=== PATIENT | male | born 1955 | race Caucasian/White ===

== ENCOUNTER 2019-04-10 07:56 | Emergency (ER) | payer OTHER ==
[~2019-04-10] VITALS: Ht 177.8 cm; Wt 108.9 kg
[2019-04-10] MEDS ORDERED: NACL 0.9% 1,000 ML IV ONE (08:00)
[2019-04-10 08:02] VITALS: BP_SYST 180
[2019-04-10] MEDS ORDERED: DIPHENHYDRAMINE INJ 50 MG/ML VIAL IVP ONE (08:15)
[2019-04-10 08:40] LABS: BASOPHILS % (AUTO) 0.4 % (0.0-2.0); EOSINOPHILS # (AUTO) 0.2 K/uL (0.0-0.4); HEMATOCRIT 41.9 % (36-54); LYMPHOCYTES # (AUTO) 1.2 K/uL (1.0-5.5); LYMPHOCYTES % (AUTO) 13.9 % (20.5-51.5); MEAN CORPUSCULAR HEMOGLOBIN 29 pg (27-31); MEAN CORPUSCULAR HGB CONC 33 % (32-36); MEAN CORPUSCULAR VOLUME 88 fL (79.0-98.0); MONOCYTES # (AUTO) 0.6 K/uL (0.0-1.0); MONOCYTES % (AUTO) 6.7 % (1.7-9.3); NEUTROPHILS # (AUTO) 6.5 K/uL (1.8-7.7); PLATELET COUNT (AUTO) 253 K/uL (130-430); RED BLOOD CELL COUNT(AUTO) 4.75 MIL/uL (4.2-6.2); WHITE BLOOD COUNT (AUTO) 8.5 K/uL (4.8-10.8)
[2019-04-10 08:43] LABS: ANION GAP 8 (5-15); CALCIUM 9.5 mg/dL (8.4-11.0); CHLORIDE 101 mmol/L (98-107); CREATININE 0.78 mg/dL (0.55-1.30); GLUCOSE 123 mg/dL (70-99); POTASSIUM 3.5 mmol/L (3.5-5.1); SODIUM SERUM 133 mmol/L (136-145); UREA NITROGEN, BLOOD 21 mg/dL (8-21)
[2019-04-10 08:45] LABS: GFR AFRICAN AMERICAN 130 mL/min (>90)
[2019-04-10 08:46] LABS: PROTHROMBIN TIME 10.1 SECS (9.5-12.5)
[2019-04-10 08:48] LABS: ALANINE AMINOTRANSFERASE 59 U/L (12-78); ALBUMIN 3.5 g/dL (3.4-4.8); ALCOHOL, BLOOD < 3 mg/dL (<10); ASPARTATE AMINOTRANSFERASE 67 U/L (10-37); LIPASE 358 U/L (73-393); TOTAL BILIRUBIN 0.9 mg/dL (0.0-1.0)
[2019-04-10 08:53] LABS: BILIRUBIN,URINE NEGATIVE (NEGATIVE); BLOOD, URINE NEGATIVE (NEGATIVE); CLARITY/URINE CLEAR (CLEAR); COLOR,URINE YELLOW (YELLOW); GLUCOSE,URINE NEGATIVE (NEGATIVE); KETONES,URINE NEGATIVE (NEGATIVE); LEUKOCYTE ESTERASE ,URINE NEGATIVE (NEGATIVE); NITRITE, URINE NEGATIVE (NEGATIVE); PH,URINE 6.5 (5.0-8.0); PROTEIN URINE 1+ (NEGATIVE); UROBILINOGEN,URINE 0.2 (0.2-1.0)
[2019-04-10 08:57] LABS: BACTERIA,URINE FEW /HPF (None Seen); RBC,URINE 0-3 /HPF (0-3); WBC,URINE 0-3 /HPF (0-3)
[2019-04-10 09:03] LABS: BARBITURATE, URINE NEGATIVE (NEG <=200)
[2019-04-10 09:04] LABS: BENZODIAZEPINE, URINE NEGATIVE (NEG <=150); CANNABINOID, URINE NEGATIVE (NEG <=50); COCAINE, URINE NEGATIVE (NEG <=150); METHAMPHETAMINES SCREEN,URINE POSITIVE (NEG <=500); OPIATE, URINE NEGATIVE (NEG <=100); PHENCYCLIDINE SCREEN,URINE NEGATIVE (NEG <=25); UR TRICYCLIC ANTIDEPRESSANTS NEGATIVE (NEG <=300); URINE AMPHETAMINE POSITIVE (NEG <=500); URINE METHADONE NEGATIVE (NEG <=200); URINE OXYCODONE SCREEN NEGATIVE (NEG <=100); URINE PROPOXYPHENE SCREEN NEGATIVE (NEG <=300)
[2019-04-10 13:33] VITALS: BP_SYST 138
== END 2019-04-10 13:32 | disposition home or self-care (01) ==
LOC: SED 07:56
DX: F23 Brief psychotic disorder (principal); F45.8 Other somatoform disorders; E78.00 Pure hypercholesterolemia, unspecified; I10 Essential (primary) hypertension
CPT/HCPCS: 36415; 70450; 71045; 80053; 80307; 81000; 82962; 83605; 83690; 83880; 84484; 85025; 85379; 85610; 85730; 87040; 93005; 96374; 99284; G0482; J1200; J7030

== ENCOUNTER 2019-04-10 15:40 | Emergency (ER) | payer OTHER ==
[~2019-04-10] VITALS: Ht 177.8 cm; Wt 108.9 kg
[2019-04-10 15:45] VITALS: BP_SYST 150
--- NOTE | 2019-04-10 15:52 | NUR ---
Dr. Bradford evaluating pt in triage.
--- NOTE | 2019-04-10 15:55 | NUR ---
Patient to ER bed 05 to gown for evaluation. Side rails up.
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
--- NOTE | 2019-04-10 16:15 | NUR ---
ER Dr. Bradford at bedside examining patient.
--- NOTE | 2019-04-10 16:41 | NUR ---
MAURO Brown and MD Bradford at bedside discussing pt condition
--- NOTE | 2019-04-10 16:56 | NUR ---
Sheriff Brown refuses to place pt on 5150 hold. Per , OK to release pt to her custody. MD Bradford aware.
--- NOTE | 2019-04-10 17:06 | NUR ---
Patient given written and verbal discharge instructions and verbalizes understanding. ER MD Bradford discussed with patient the results and treatment provided. Patient in stable condition. ID arm band removed. No Rx given. Patient educated on pain management and to follow up with PMD. Pain Scale 0. Opportunity for questions provided and answered. Medication side effect fact sheet provided.
[2019-04-10 17:07] VITALS: BP_SYST 147
== END 2019-04-10 17:06 | disposition home or self-care (01) ==
LOC: SED 15:40
DX: F23 Brief psychotic disorder (principal); F45.8 Other somatoform disorders; F15.10 Other stimulant abuse, uncomplicated; F31.9 Bipolar disorder, unspecified; I10 Essential (primary) hypertension; E78.00 Pure hypercholesterolemia, unspecified
CPT/HCPCS: 99283

== ENCOUNTER 2019-05-23 03:55 | Emergency (ER) | payer OTHER ==
[~2019-05-23] VITALS: Ht 177.8 cm; Wt 104.3 kg
[2019-05-23 03:55] VITALS: BP_SYST 162
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
--- NOTE | 2019-05-23 03:58 | NUR ---
Pt states "I want to go home, I'm worried about my dog." Dr. Marmolejo called to bedside and he informed pt risks of if he leaves. Pt states "I'll take my chances." Pt denies SI. Pt took of O2. B/P HR 105, R 20 B/P 162/90, 96% SPO2. Campaign Developer called.
--- NOTE | 2019-05-23 04:00 | NUR ---
SOCO Hart Officer at bedside.
--- NOTE | 2019-05-23 04:02 | NUR ---
RT at bedside.
--- NOTE | 2019-05-23 04:05 | NUR ---
Pt at end of bed, O2 mask off. Pt instructed to get back in bed. Pt does not comply. Dr. Marmolejo notified.
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
--- NOTE | 2019-05-23 04:30 | NUR ---
X-ray at bedside.
--- NOTE | 2019-05-23 04:40 | NUR ---
RT at bedside to obtain ABG.
--- NOTE | 2019-05-23 04:42 | NUR ---
Pt provides number for friend (Mark) [phone]. Dr. Marmolejo on phone with Mark to inform the severity of pt.'s condition and his need to stay in hospital. Mark states that he will notify pt.'s brother and they both will come to ER to see pt.
--- NOTE | 2019-05-23 04:44 | NUR ---
Dr. Marmolejo at bedside to inform pt that his friend Mark stated that he needs to stay. Pt then states "Okay, I'll stay."
--- NOTE | 2019-05-23 04:54 | NUR ---
Pt at end of bed, refuses to get back in bed to wear O2 mask. Pt continues to request to leave to take care of personal matters. Increased level of anxiety noted.
--- NOTE | 2019-05-23 04:58 | NUR ---
Pt instructed to not get out of bed. Then pt gets out of bed and walks to restroom with steady gait. Pt returns to bed, refuses to wear O2 mask. Dr. Marmolejo notified.
--- NOTE | 2019-05-23 05:00 | NUR ---
Page put out to Dr. Galvan.
--- NOTE | 2019-05-23 05:06 | NUR ---
Dr. Marmolejo on phone with Dr. Galvan, instructed to put pt on hold and sedate if necessary for medical tx.
[2019-05-23] MEDS ORDERED: LORazepam 2 MG/ML VIAL (FOR ER USE) IVP ONE ×2 (05:15→06:15)
--- NOTE | 2019-05-23 05:16 | NUR ---
Lab at bedside.
--- NOTE | 2019-05-23 05:27 | NUR ---
Pt resting quietly, respirations even and non-labored, BBS clear. Pt compliant with tx, Non-rebreather Face Mask reapplied with O2 at 15 LPM, SPO2 98%. Pt on striker out, VSS.
[2019-05-23 05:30] LABS: BASOPHILS # (AUTO) 0.1 K/uL (0.0-0.2); BASOPHILS % (AUTO) 0.6 % (0.0-2.0); EOSINOPHILS # (AUTO) 0.1 K/uL (0.0-0.4); EOSINOPHILS % (AUTO) 0.6 % (0.0-4.0); HEMATOCRIT 46.4 % (36-54); HEMOGLOBIN 15.7 g/dL (14.0-18.0); LYMPHOCYTES # (AUTO) 1.4 K/uL (1.0-5.5); LYMPHOCYTES % (AUTO) 11.8 % (20.5-51.5); MEAN CORPUSCULAR HEMOGLOBIN 30 pg (27-31); MEAN CORPUSCULAR HGB CONC 34 % (32-36); MEAN CORPUSCULAR VOLUME 89 fL (79.0-98.0); MONOCYTES # (AUTO) 0.7 K/uL (0.0-1.0); MONOCYTES % (AUTO) 5.8 % (1.7-9.3); NEUTROPHILS # (AUTO) 9.7 K/uL (1.8-7.7); NEUTROPHILS % (AUTO) 81.2 % (40.0-70.0); PLATELET COUNT (AUTO) 271 K/uL (130-430); RED BLOOD CELL COUNT(AUTO) 5.23 MIL/uL (4.2-6.2); RED CELL DISTRIBUTION WIDTH 14.9 % (9.0-15.0); WHITE BLOOD COUNT (AUTO) 11.9 K/uL (4.8-10.8)
[2019-05-23 05:42] LABS: ANION GAP 10 (5-15); CHLORIDE 101 mmol/L (98-107); CREATININE 0.85 mg/dL (0.55-1.30); GLUCOSE 106 mg/dL (70-99); POTASSIUM 4.7 mmol/L (3.5-5.1); SODIUM SERUM 137 mmol/L (136-145); UREA NITROGEN, BLOOD 30 mg/dL (8-21)
[2019-05-23] MEDS ORDERED: LR 1,000 ML IV ONE (05:45)
[2019-05-23 05:51] LABS: ALANINE AMINOTRANSFERASE 47 U/L (12-78); ALBUMIN 3.4 g/dL (3.4-4.8); ASPARTATE AMINOTRANSFERASE 26 U/L (10-37); TOTAL BILIRUBIN 0.5 mg/dL (0.0-1.0)
[2019-05-23 05:52] LABS: GFR AFRICAN AMERICAN 117 mL/min (>90)
--- NOTE | 2019-05-23 06:15 | NUR ---
Brother in law at bedside keeping Pt company. Pt continue to verbalize that he is ready to leave.
--- NOTE | 2019-05-23 06:16 | NUR ---
VSS no s/s of acute distress. Restless on gurney, needs verbal command to keep calm and stay on gurney with rails up
[2019-05-23] MEDS ORDERED: DIPHENHYDRAMINE INJ 50 MG/ML VIAL IVP ONE (06:30)
--- NOTE | 2019-05-23 07:29 | NUR ---
Resumed care for patient. Patient sleeping @ this time with no signs of distress noted. Patient has no complaints of pain. Patient is agitated to leave per his statement of "I'm tired of this, I want to go," but remains laying in bed.
--- NOTE | 2019-05-23 07:35 | NUR ---
Patient removed IV and NIBP cuff. Patient remains in bed but does not comply with instructions. Dr. Marmolejo made aware.
[2019-05-23 07:38] LABS: ACETAMINOPHEN 2 ug/mL (1-30); ALCOHOL, BLOOD < 3 mg/dL (<10)
--- NOTE | 2019-05-23 07:49 | NUR ---
Dr. Proctor @ bedside for examination.
--- NOTE | 2019-05-23 07:54 | NUR ---
Dr. Galvan @ bedside for examination.
[2019-05-23] MEDS ORDERED: LORazepam 1 MG TABLET PO ONE (08:00)
--- NOTE | 2019-05-23 09:09 | NUR ---
Patient laying in bed. Patient was able to eat breakfast and was medicated as ordered. Patient still insist on going home. Informed patient that his brother will be on his way. No signs of distress noted @ this time.
[2019-05-23 09:46] VITALS: BP_SYST 140
--- NOTE | 2019-05-23 09:46 | NUR ---
Patient given written and verbal discharge instructions and verbalizes understanding. ER MD discussed with patient the results and treatment provided. Patient in stable condition. ID arm band removed. Patient educated on pain management and to follow up with PMD. Opportunity for questions provided and answered. Medication side effect fact sheet provided.
== END 2019-05-23 09:46 | disposition home or self-care (01) ==
LOC: SED 03:55
DX: J70.5 Respiratory conditions due to smoke inhalation (principal); E78.00 Pure hypercholesterolemia, unspecified; I10 Essential (primary) hypertension
CPT/HCPCS: 36415; 36600; 71045; 80053; 82140; 82550; 82803; 84484; 85025; 96365; 96375; 99284; G0480; G0481; G0482; J1200; J2060

== ENCOUNTER 2019-10-25 12:14 | Emergency (ER) | payer OTHER ==
[~2019-10-25] VITALS: Ht 177.8 cm; Wt 135.2 kg
[2019-10-25 12:15] VITALS: BP_SYST 153
--- NOTE | 2019-10-25 12:15 | NUR ---
Patient to ER bed 1 to gown for evaluation. Side rails up. Assumed care.
[2019-10-25] MEDS ORDERED: ASPIRIN 81 MG TAB.CHEW PO ONE (12:30)
--- NOTE | 2019-10-25 12:30 | NUR ---
Patient AAOx4 c/o chest pain and SOB. Patient is diaphoretic. Patient denies any allergies and reports PMH of HTN, DM, bipolar disease, and carpal tunnel. Patient reports chest pain is non-radiating. Respirations even and unlabored. EKG at bedside. MD aware. Will continue to monitor.
--- NOTE | 2019-10-25 12:36 | NUR ---
ER Dr. Oropeza at bedside examining patient.
[2019-10-25] MEDS ORDERED: NITROGLYCERIN 0.4 MG TAB.SUBL SL ONE (12:45)
[2019-10-25] MEDS ORDERED: MORPHINE 4 MG/ML INJ. SYRINGE IVP ONE (12:45)
[2019-10-25] MEDS ORDERED: NITROGLYCERIN 1 INCH (GM) OINT. TD ONE (12:45)
[2019-10-25 13:13] LABS: BASOPHILS % (AUTO) 0.6 % (0.0-2.0); EOSINOPHILS # (AUTO) 0.1 K/uL (0.0-0.4); EOSINOPHILS % (AUTO) 1.3 % (0.0-4.0); HEMATOCRIT 45.4 % (36-54); HEMOGLOBIN 15.1 g/dL (14.0-18.0); LYMPHOCYTES # (AUTO) 1.2 K/uL (1.0-5.5); LYMPHOCYTES % (AUTO) 14.6 % (20.5-51.5); MEAN CORPUSCULAR HEMOGLOBIN 29 pg (27-31); MEAN CORPUSCULAR HGB CONC 33 % (32-36); MEAN CORPUSCULAR VOLUME 88 fL (79.0-98.0); MONOCYTES # (AUTO) 0.4 K/uL (0.0-1.0); MONOCYTES % (AUTO) 5.2 % (1.7-9.3); NEUTROPHILS # (AUTO) 6.6 K/uL (1.8-7.7); NEUTROPHILS % (AUTO) 78.3 % (40.0-70.0); PLATELET COUNT (AUTO) 185 K/uL (130-430); RED BLOOD CELL COUNT(AUTO) 5.18 MIL/uL (4.2-6.2); RED CELL DISTRIBUTION WIDTH 15.7 % (9.0-15.0); WHITE BLOOD COUNT (AUTO) 8.4 K/uL (4.8-10.8)
[2019-10-25 13:27] LABS: CALCIUM 8.8 mg/dL (8.4-11.0); CREATININE 0.76 mg/dL (0.55-1.30)
[2019-10-25 13:42] LABS: POTASSIUM 2.9 mmol/L (3.5-5.1)
[2019-10-25 13:43] LABS: ALBUMIN 3.5 g/dL (3.4-4.8); TOTAL BILIRUBIN 1.7 mg/dL (0.0-1.0)
[2019-10-25] MEDS ORDERED: POTASSIUM CHLORIDE 20 MEQ/PKT PACKET PO ONE (14:00)
--- NOTE | 2019-10-25 14:18 | NUR ---
CALLED DR MALDONADO PER DR MORFIN
[2019-10-25 14:27] LABS: CKMB RELATIVE INDEX 3.4 (0.0-2.9)
[2019-10-25] MEDS ORDERED: ENALAPRILAT DIHYDRATE 1.25 MG/ML VIAL IVP PRN (15:00)
[2019-10-25] MEDS ORDERED: ONDANSETRON HCL 4 MG/2 ML VIAL IVP PRN (15:00)
[2019-10-25] MEDS ORDERED: MORPHINE 4 MG/ML INJ. SYRINGE IVP PRN (15:00)
[2019-10-25] MEDS ORDERED: METOCLOPRAMIDE HCL 10 MG/2 ML VIAL IVP PRN (15:00)
[2019-10-25] MEDS ORDERED: *LOVENOX 1MG/KG Q12H/PHARMACY XX ONE (15:00)
[2019-10-25] MEDS ORDERED: MORPHINE 2 MG/ML INJ. SYRINGE IVP PRN (15:00)
[2019-10-25] MEDS ORDERED: ENOXAPARIN SODIUM 100 MG/ML SYRINGE SUBCUT ONE (15:00)
[2019-10-25] MEDS ORDERED: METOPROLOL TARTRATE 25 MG TABLET PO ONE (15:15)
[2019-10-25] MEDS ORDERED: NITROGLYCERIN 0.4 MG/HR PATCH.TD24 TD ONE (15:15)
--- NOTE | 2019-10-25 15:30 | NUR ---
ECHO being performed at bedside.
--- NOTE | 2019-10-25 15:40 | NUR ---
Belongings list completed and in chart.
--- NOTE | 2019-10-25 15:45 | NUR ---
Patient will be admitted to care of Dr. Hernandez. Admitted to ICU unit. Waiting for available bed. Belongings list completed. Complete and up to date summary report printed. SBAR report to be given at bedside with opportunity for questions.
--- NOTE | 2019-10-25 15:46 | NUR ---
Unable to obtain medication reconciliation.
--- NOTE | 2019-10-25 15:50 | NUR ---
Pt states he wants to go home to take care of his dog, Pt aware orders received for admission, pt insists he wants to go home and will be back tomorrow, Dr Oropeza notified, house fellow notified .
--- NOTE | 2019-10-25 16:00 | NUR ---
Dr Oropeza at bedside given information to patient about related to possible complications, up to and including , which could occur as a result of leaving hospital at this time. Patient insists he wants to go home, Dr Oropeza explained morphine was given and pt needs to wait at least 4 hours nefore leaving the hospital, pt agreeable to wait few more hours.
--- NOTE | 2019-10-25 18:37 | NUR ---
Patient does not wish to proceed with medical care recommended by Dr. Oropeza. Patient given information related to possible complications, up to and including , which could occur as a result of leaving hospital at this time. Patient verbalizes understanding of risks involved leaving against medical advice. Patient has signed AMA form.
[2019-10-25 18:38] VITALS: BP_SYST 154
--- NOTE | 2019-10-25 18:40 | NUR ---
ID arm band removed. IV catheter removed intact and dressing applied, no active bleeding.
[2019-10-25] MEDS ORDERED: METOPROLOL TARTRATE 25 MG TABLET PO SCH (21:00)
[2019-10-26] MEDS ORDERED: ENOXAPARIN SODIUM 100 MG, ENOXAPARIN SODIUM 40 MG SUBCUT SCH ×2
[2019-10-26] MEDS ORDERED: NITROGLYCERIN 0.4 MG/HR PATCH.TD24 TD SCH (09:00)
[2019-10-26] MEDS ORDERED: ASPIRIN 81 MG TAB.CHEW PO SCH (09:00)
--- NOTE | 2019-10-26 10:21 | NUR ---
Nutrition Update Jean Paul Scale 18 noted. Pt admitted for acute NE. Diet: N/A BMI: 42.8 kg/m2 RD to follow per nutrition care standards.
[2019-10-26 18:02] LABS: CHOLESTEROL 162 mg/dL (<200); HDL CHOLESTEROL 37 mg/dL (>45); LDL CHOLESTEROL 97 mg/dL (<100); TRIGLYCERIDES 211 mg/dL (30-150)
[2019-10-29] MEDS ORDERED: LISINOPRIL 10 MG TABLET (PRINIVIL) PO ONE (21:15)
== END 2019-10-25 18:37 | disposition other institution (70) ==
LOC: SED 12:14 → SIC 14:53 → UNDOADMIN 14:53 → SIC 16:31 → UNDODISIN 18:45
DX: I21.4 Non-ST elevation (NSTEMI) myocardial infarction (principal); I10 Essential (primary) hypertension; E11.9 Type 2 diabetes mellitus without complications; F17.210 Nicotine dependence, cigarettes, uncomplicated; F15.90 Other stimulant use, unspecified, uncomplicated
CPT/HCPCS: 36415; 71045; 80053; 80061; 82550; 82553; 83036; 84484; 85025; 93005; 93306; 96372; 96374; 96375; 99291; J1650; J2270

== ENCOUNTER 2019-10-27 12:52 | Inpatient (IN) | payer OTHER ==
[~2019-10-27] VITALS: Ht 177.8 cm; Wt 112.2 kg
[2019-10-27 12:55] VITALS: BP_SYST 144
--- NOTE | 2019-10-27 12:55 | NUR ---
Patient triaged and placed in waiting room. VSS and patient appears in no acute distress at this time. Accompanied by SELF, awaiting available bed, and MD notified of need for MSE.
[2019-10-27] MEDS ORDERED: NACL 0.9% 1,000 ML IV ONE (14:55)
--- NOTE | 2019-10-27 14:55 | NUR ---
Patient to ER bed 8 to gown for evaluation. Side rails up.
[2019-10-27] MEDS ORDERED: ALBUTEROL SULFATE 0.083% 2.5 MG/3 ML VIAL.NEB INH ONE (15:00)
[2019-10-27] MEDS ORDERED: IPRATROPIUM BROM 0.5 MG/2.5 ML VIAL.NEB (ATROVENT) INH ONE (15:00)
[2019-10-27] MEDS ORDERED: methylPREDNISolone SOD SUCC/PF 62.5 MG/ML VIAL IVP ONE (15:00)
--- NOTE | 2019-10-27 15:00 | NUR ---
Patient presented to ER C/O SOB. Patient A&Ox4, skin pink and warm, ambulatory to ER, afebrile, cap rfil <3, placed on pulse-ox monitor, satuation 98%. Patient states he has had SOB x1 week and was seen in [facility] ER Friday.
--- NOTE | 2019-10-27 15:01 | NUR ---
ER at bedside examining patient.
[2019-10-27 15:45] LABS: BASOPHILS # (AUTO) 0.1 K/uL (0.0-0.2); BASOPHILS % (AUTO) 0.5 % (0.0-2.0); EOSINOPHILS % (AUTO) 0.2 % (0.0-4.0); HEMATOCRIT 46.1 % (36-54); HEMOGLOBIN 15.5 g/dL (14.0-18.0); LYMPHOCYTES % (AUTO) 8.1 % (20.5-51.5); MEAN CORPUSCULAR HEMOGLOBIN 29 pg (27-31); MEAN CORPUSCULAR HGB CONC 34 % (32-36); MEAN CORPUSCULAR VOLUME 87 fL (79.0-98.0); MONOCYTES # (AUTO) 0.9 K/uL (0.0-1.0); MONOCYTES % (AUTO) 7.3 % (1.7-9.3); NEUTROPHILS # (AUTO) 10.1 K/uL (1.8-7.7); NEUTROPHILS % (AUTO) 83.9 % (40.0-70.0); PLATELET COUNT (AUTO) 194 K/uL (130-430); RED CELL DISTRIBUTION WIDTH 15.6 % (9.0-15.0)
[2019-10-27 15:48] LABS: CALCIUM 8.6 mg/dL (8.4-11.0); CREATININE 0.67 mg/dL (0.55-1.30); POTASSIUM 3.9 mmol/L (3.5-5.1)
[2019-10-27 15:52] LABS: INR 1.1 (0.80-1.20); PROTHROMBIN TIME 11.2 SECS (9.5-12.5)
[2019-10-27 15:55] LABS: ALBUMIN 3.2 g/dL (3.4-4.8); TOTAL BILIRUBIN 1.5 mg/dL (0.0-1.0)
[2019-10-27 16:27] LABS: BILIRUBIN,URINE NEGATIVE (NEGATIVE); BLOOD, URINE TRACE (NEGATIVE); CLARITY/URINE HAZY (CLEAR); COLOR,URINE AMBER (YELLOW); GLUCOSE,URINE NEGATIVE (NEGATIVE); KETONES,URINE 2+ (NEGATIVE); LEUKOCYTE ESTERASE ,URINE TRACE (NEGATIVE); NITRITE, URINE NEGATIVE (NEGATIVE); PH,URINE 6.5 (5.0-8.0); PROTEIN URINE 3+ (NEGATIVE)
[2019-10-27 16:31] LABS: BACTERIA,URINE FEW /HPF (None Seen); MUCUS,URINE 3+ /LPF (None Seen); RBC,URINE 0-3 /HPF (0-3)
[2019-10-27 16:45] LABS: CKMB RELATIVE INDEX 3.9 (0.0-2.9); CREATINE KINASE MB 14.7 ng/mL (0-3.6)
--- NOTE | 2019-10-27 17:40 | NUR ---
Patient will be admitted to care of Dr. Montano. Admitted to Tele unit. Will go to room 116. Belongings list completed. Complete and up to date summary report printed. SBAR report to be given at bedside with opportunity for questions.
[2019-10-27] MEDS ORDERED: MORPHINE 2 MG/ML INJ. SYRINGE IVP ONE (18:00)
[2019-10-27] MEDS ORDERED: NITROGLYCERIN 0.4 MG TAB.SUBL SL ONE (18:00)
--- NOTE | 2019-10-27 18:10 | NUR ---
Admit to telemetry 116A Received pt diaphoretic, afebrile. Pt states no pain at this time but "wants to sleep." VS: T 97.4, BP 106/73, R 17, HR 76, O2 sat 88% on RA. Placed patient on O2 2L NC, O2 sat increased to 94%. Situated pt to room and call light. Belongings at bedside.
[2019-10-27 19:00] VITALS: BP_SYST 106
--- NOTE | 2019-10-27 19:15 | NUR ---
change of shift.pt.is a new admission,per day shift;jesse.pt admit dx;chest pain.sob.pt presents quiescent affect;calm,somnolent. iv fluids:ns infusing.pt.resting.pt capable to ambulate;reposition self..general status stable.respiratory status ;labored;pt.receiving the administration o2 therapy administered@the rate 2l/min:o2-sat noted 98%.call light/telephone w/in pt's reach.
[2019-10-27 20:00] VITALS: BP_SYST 115
--- NOTE | 2019-10-27 20:00 | NUR ---
pt.assessed.v/s assessed;values w/in normal limits:o2-sat%=98% w/o2 therapy administered@2l/min.no c/o pain,.nausea.pt.had requested snacks.diet status;cardiac;snacks provided.i have reviewed the labs other pt.data;troponin:5.787.;y cardio is ordered consult the consult has yet to be placed.iv fluids;ns infusing:ns;iv fluids x1 dose.call light/telephone w/in the pt's reach.
--- NOTE | 2019-10-27 20:18 | NUR ---
CARDIO CONSULT PAGED CONSULT Dr. Vale Lynch ([phone]) Dx: Chest Pain s/w Kelly, she said Dr. Farmer is front office supervisor ([phone]) Addendum: 10/27/19 at 2108 by Yanni Doty RN Dr. Farmer's
[2019-10-27] MEDS ORDERED: MORPHINE 2 MG/ML INJ. SYRINGE IVP PRN (20:45)
[2019-10-27] MEDS ORDERED: FUROSEMIDE 20 MG/2 ML VIAL IVP ONE (20:45)
[2019-10-27] MEDS ORDERED: ASPIRIN 81 MG TAB.CHEW PO ONE (20:45)
[2019-10-27] MEDS ORDERED: CARVEDILOL 3.125 MG TABLET (COREG) PO ONE (20:45)
[2019-10-27] MEDS ORDERED: NITROGLYCERIN 0.4 MG TAB.SUBL SL PRN (20:45)
[2019-10-27] MEDS ORDERED: ENOXAPARIN SODIUM 60 MG/0.6 ML SYRINGE SUBCUT ONE (20:45)
[2019-10-27] MEDS ORDERED: ASPIRIN 81 MG TAB.CHEW PO SCH (21:00)
[2019-10-27] MEDS ORDERED: CARVEDILOL 3.125 MG TABLET (COREG) PO SCH (21:00)
[2019-10-27] MEDS ORDERED: FUROSEMIDE 20 MG/2 ML VIAL IVP SCH (21:00)
[2019-10-27] MEDS ORDERED: ALBUTEROL SULFATE 0.083% 2.5 MG/3 ML VIAL.NEB INH PRN (21:15)
[2019-10-27] MEDS ORDERED: IPRATROPIUM BROM 0.5 MG/2.5 ML VIAL.NEB (ATROVENT) INH PRN (21:15)
--- NOTE | 2019-10-27 21:25 | NUR ---
Paged Dr. Farmer [phone]
--- NOTE | 2019-10-27 21:28 | NUR ---
Dr. Farmer here to see patient
--- NOTE | 2019-10-27 21:30 | NUR ---
;cardio returned the page.[facility]. inquired re;other pt.,data.provided. has provided orders;labs;troponin;studies;2d-echo,ekg,cxr:in am;10/28/19.troponin:q-8nhrs x3.initial troponin to scheduled to be drawn@2100p,cbc,cmp,mg.
--- NOTE | 2019-10-27 21:30 | NUR ---
has presented himself. is assessing;conferring w/the pt.@the bedside.
--- NOTE | 2019-10-27 21:45 | NUR ---
i have been apprised of the troponin level;5.878.to page the exchange of ;y cardio.
[2019-10-27 21:51] VITALS: BP_SYST 130
--- NOTE | 2019-10-27 22:00 | NUR ---
has completed his pt's assessment. is verbally ordering medications,blood glucose assessment. diet changes;diet status;cardiac/ccho:1800 ada kcal.
[2019-10-27] MEDS ORDERED: HYDROcodone/ACETAMIN 5-325 MG TAB (NORCO/ VICODIN) PO PRN (22:45)
[2019-10-27] MEDS ORDERED: ONDANSETRON HCL 4 MG/2 ML VIAL IVP PRN (22:45)
[2019-10-27] MEDS ORDERED: HYDROcodone/ACETAMIN 10-325 MG TAB PO PRN (22:45)
[2019-10-27] MEDS ORDERED: ACETAMINOPHEN 325 MG TABLET PO PRN (22:45)
[2019-10-27] MEDS ORDERED: LORazepam 2 MG/ML VIAL IVP PRN (22:45)
[2019-10-27] MEDS ORDERED: TEMAZEPAM 15 MG CAPSULE PO SCH (23:00)
[2019-10-27] MEDS ORDERED: ENOXAPARIN SODIUM 60 MG/0.6 ML SYRINGE SUBCUT SCH (23:00)
--- NOTE | 2019-10-27 23:30 | NUR ---
had order levonox:60mg sq x1.,lasix;20mg ip x1,asa;81mg po x1,coreg;3.125mg po x1.blood glucose assessment;ac/hs. i have administered the medications.lasix;pt.apprised that the medication is diuretic and will initiate mictrition desire.i have provided the urinal.x2.i have assessed the blood glucose:value.220mg/dl.ns-iv fluids is completed removed:no c/o pain,nausea.
[2019-10-28] VITALS (15 sets, daily range): BP systolic 110–159
--- NOTE | 2019-10-28 | NUR ---
pt.assessed;v/s assessed;values w/in normal limits.pt stated no,nausea pain is@a low level.pt had requested ice water, i have provided the ice water.i have attended to the urinal.the initial mictrition s/p the administration of lasix;20mg ivp.
--- NOTE | 2019-10-28 01:00 | NUR ---
pt.assessed.pt.presents quiecent affect;calm,somnolent.general status stable.respiratory status stable;unlabored. o2-sat%=96%,pt.capable to reposition;self.call light/telephone w/in the reach of the pt.
--- NOTE | 2019-10-28 02:00 | NUR ---
pt.assessed.pt.presents quiescent affect;calm,somnolent.i have attended to the urinal;measured.noted.placed w/in the reach of the pt.general status stable. respiratory status stable.pt capable to reposition self.call light/telephone w/in reach of the pt.
--- NOTE | 2019-10-28 04:00 | NUR ---
pt.assessed.pt.presents quiescent affect;calm,somnolent.general status stable.respiratory status stable.i have attended to the urinal;measured.noted output.placed w/in reach of the pt.pt.capable to reposition self.call light/telephone w/in the reach of the pt.
--- NOTE | 2019-10-28 04:33 | NUR ---
ID consultation paged Reason for consultation: Leukocytosis Was consult called: Yes Person who was notified: Allyn Facesheet is faxed to . Consulting physician: Dr Breezy Cheatham Industrial Engineering Analyst phone number: Industrial Engineering Analyst specialty: Infectious Disease Ordered by: Dr Romelia Lynch
[2019-10-28] MEDS ORDERED: NORMAL SALINE 5 ML DISP.SYRIN IVF SCH (06:00)
[2019-10-28] MEDS: NORMAL SALINE 5 ML DISP.SYRIN IVF SCH ×3 (06:27→23:08)
--- NOTE | 2019-10-28 06:30 | NUR ---
pt.assessed.blood glucose assessed;value;22mg/dl.i have apprised the pt of the blood glucose value.no c/o pain,nausea. urinal inspected;clean.i have weighed the pt.this am:2/t chf/lasix administration.pt had requested cup of ice water i have provided the ice water.pt capable to reposition self.call light/telephone w/in the reach of the pt.
[2019-10-28 07:26] LABS: BASOPHILS % (AUTO) 0.4 % (0.0-2.0); EOSINOPHILS # (AUTO) 0.1 K/uL (0.0-0.4); EOSINOPHILS % (AUTO) 0.5 % (0.0-4.0); HEMATOCRIT 45.3 % (36-54); HEMOGLOBIN 15.2 g/dL (14.0-18.0); LYMPHOCYTES # (AUTO) 1.1 K/uL (1.0-5.5); LYMPHOCYTES % (AUTO) 10.4 % (20.5-51.5); MEAN CORPUSCULAR HEMOGLOBIN 29 pg (27-31); MEAN CORPUSCULAR HGB CONC 34 % (32-36); MEAN CORPUSCULAR VOLUME 88 fL (79.0-98.0); MONOCYTES # (AUTO) 0.8 K/uL (0.0-1.0); MONOCYTES % (AUTO) 7.8 % (1.7-9.3); NEUTROPHILS # (AUTO) 8.6 K/uL (1.8-7.7); NEUTROPHILS % (AUTO) 80.9 % (40.0-70.0); PLATELET COUNT (AUTO) 205 K/uL (130-430); RED BLOOD CELL COUNT(AUTO) 5.17 MIL/uL (4.2-6.2); RED CELL DISTRIBUTION WIDTH 16.1 % (9.0-15.0); WHITE BLOOD COUNT (AUTO) 10.6 K/uL (4.8-10.8)
--- NOTE | 2019-10-28 07:45 | NUR ---
opening note patient is resting in bed, alert and oriented, educated regional sales trainer light system and plan of care, patient verbalized understanding, no signs of distress at this time, on 2L nasal cannula, IV site intact, no other needs addressed at this time, bed in lowest position, bed alarm on, side rails up, call light within reach, fall/safety precautions in place.
[2019-10-28 07:49] LABS: ALBUMIN 2.9 g/dL (3.4-4.8); CALCIUM 8.2 mg/dL (8.4-11.0); CREATININE 0.71 mg/dL (0.55-1.30); PHOSPHORUS 3.5 mg/dL (2.7-4.5); POTASSIUM 3.5 mmol/L (3.5-5.1); TOTAL BILIRUBIN 1.5 mg/dL (0.0-1.0)
[2019-10-28] MEDS: CARVEDILOL 3.125 MG TABLET (COREG) PO SCH ×2 (08:17→21:50)
[2019-10-28] MEDS: ASPIRIN 81 MG TAB.CHEW PO SCH (08:17)
--- NOTE | 2019-10-28 08:35 | NUR ---
MULTIPLEX OPERATOR DR GONZALEZ WAS CALLED, RE: CRITICAL TROP. SPOKE TO RYAN.
[2019-10-28] MEDS ORDERED: POTASSIUM CHLORIDE 20 MEQ/PKT PACKET PO ONE (08:45)
[2019-10-28] MEDS: FUROSEMIDE 20 MG TABLET PO SCH (08:58)
[2019-10-28] MEDS ORDERED: ENOXAPARIN SODIUM 60 MG/0.6 ML SYRINGE SUBCUT SCH ×2 (09:00)
--- NOTE | 2019-10-28 10:05 | NUR ---
patient found on the floor Patient was rushing to the bathroom and had the blue patient pants on. He did not make it to the bathroom, he slipped on his own feces. patient was found on the floor by another staff with his hands and knees on the floor, crawling to the bathroom, he was yelling, patient stated that he needed to have a BM and could not hold it and did not want to wait and did not want to call. patient was assisted with ambulating to the bathroom and once done he went back to bed. education was reinforced to use the call light for assistance. call light is within reach, three side rails up, bed alarm on, brakes armed, bed in lowest position.
[2019-10-28] MEDS ORDERED: NITROGLYCERIN 0.4 MG/HR PATCH.TD24 TD ONE (10:45)
[2019-10-28] MEDS ORDERED: MORPHINE 2 MG/ML INJ. SYRINGE IVP PRN (10:45)
[2019-10-28] MEDS ORDERED: MORPHINE 4 MG/ML INJ. SYRINGE IVP PRN (10:45)
[2019-10-28] MEDS ORDERED: ENOXAPARIN SODIUM 100 MG/ML SYRINGE SUBCUT ONE (10:45)
[2019-10-28] MEDS ORDERED: ONDANSETRON HCL 4 MG/2 ML VIAL IVP PRN (10:45)
[2019-10-28] MEDS ORDERED: NITROGLYCERIN 0.4 MG/HR PATCH.TD24 TD SCH (10:45)
--- NOTE | 2019-10-28 10:45 | NUR ---
CONSULTATION PAGED/CALLED Reason for Consultation: [] ELEVATED TROP Person Who was Notified: [] MELITON Consulting Physician: [] DR MALDONADO Eyeglass Fitter Specialty: [] CARDIOLOGY Ordering Physician: [] DR GRIDER
--- NOTE | 2019-10-28 11:04 | NUR ---
PREVIOUS CARDIO CONSULT TO DR GONZALEZ /DR Denice FREGOSO WAS CHANGED TO DR MALDONADO. DR GONZALEZ AWARE
[2019-10-28] MEDS: INSULIN REGULAR, HUMAN 100 UNITS/ML, 10 ML VIAL (humuLIN R) SUBCUT PRN ×2 (11:12→17:45)
--- NOTE | 2019-10-28 11:16 | NUR ---
CONSULTATION PAGED/CALLED Reason for Consultation: ACUTE UT Person Who was Notified: LINH Consulting Physician: Photo Graphics Librarian Specialty: Ordering Physician:
--- NOTE | 2019-10-28 11:35 | NUR ---
patient transferred to ICU report given to BISI Gavin.
[2019-10-28 11:51] LABS: BARBITURATE, URINE NEGATIVE (NEG <=200); BENZODIAZEPINE, URINE NEGATIVE (NEG <=150); CANNABINOID, URINE NEGATIVE (NEG <=50); COCAINE, URINE NEGATIVE (NEG <=150); METHAMPHETAMINES SCREEN,URINE POSITIVE (NEG <=500); OPIATE, URINE NEGATIVE (NEG <=100); PHENCYCLIDINE SCREEN,URINE NEGATIVE (NEG <=25); UR TRICYCLIC ANTIDEPRESSANTS NEGATIVE (NEG <=300); URINE AMPHETAMINE POSITIVE (NEG <=500); URINE METHADONE NEGATIVE (NEG <=200); URINE OXYCODONE SCREEN NEGATIVE (NEG <=100); URINE PROPOXYPHENE SCREEN NEGATIVE (NEG <=300)
--- NOTE | 2019-10-28 11:56 | NUR ---
Opening Note Patient received awake and alert in bed. Patient transferred to ICU-3 and connected to planning advisor at this time. Patient on 2L oxygen via nasal cannula, no signs of distress noted. Patient uses urinal to void. Patient does not complain of pain. Safety precautions enforced.
--- NOTE | 2019-10-28 15:16 | NUR ---
Dietitian Recommendations * Recommend cardiac, CCHO diet w/ Glucerna BID (ONS provides 440 kcal/day, 20 gm protein/day) YUNIOR ENGEL Please refer to Nutrition Assessment for details. Addendum: 10/28/19 at [address] Amended: Links added.
--- NOTE | 2019-10-28 17:50 | NUR ---
Visitors at bedside. Patient active and alert able to communicate well. Patient in no signs of distress. Patient does not complain of pain.
--- NOTE | 2019-10-28 19:19 | NUR ---
Closing Note Patient in no signs of distress at this time. Endorsed to maintenance technician 2nd shift RN using SBAR format.
--- NOTE | 2019-10-28 20:00 | NUR ---
PATIENT WAS ACCEPTED AND ASSESS DONE RESPOND WELL TO ALL COMMANDS AND IS SELF CARE, ABLE TO TURN IN BED BY SELF AND IS ABLE TO GET OUT OF BED TO USED THE COMMAND CHAIR , PATIENT DOSE NOT LIKE TO WEAR CLOTHING , THERE FOR ONLY AN SHEET IS ON THE PATIENT , STABLE HAS NO IVF , HEPLOCK ON THE RIGHT A/C THOMAS CHEST PAIN , WOULD ASK FOR SOME ICE CREAM AT INTERVALS THE PATIENT IS OBESITY , BUT IS ABLE TO DO FOR SELF, STABLE 2200 PATIENT OFF MONITOR WHEN TURNING, NOTICE OF THE MONITOR LEAD TAP TO THE SKIN , AND THE PATIENT IS VERY HAIRY, THE SKIN WAS SHAVE AND CLEAN NEW MONITOR LEAD WERE APPLIED, NOW PATIENT IS ABLED TO STAY ON THE MONITOR, STABLE WILL CONTINUED WITH PLAN OF CARE.
[2019-10-28] MEDS: ENOXAPARIN SODIUM 100 MG/ML SYRINGE SUBCUT SCH (21:47)
[2019-10-28] MEDS: TEMAZEPAM 15 MG CAPSULE PO SCH (21:50)
[2019-10-29] VITALS (18 sets, daily range): BP systolic 109–147
--- NOTE | 2019-10-29 06:30 | NUR ---
PATIENT LAB THIS AM SUNNYON 4,2OO, WAS 5.3 ON 10/27/19 HAS CAME DOWN WILL THE DOCTOR, PATIENT HAS NO IVF AT THIS TIME STABLE
[2019-10-29] MEDS: NORMAL SALINE 5 ML DISP.SYRIN IVF SCH ×3 (07:06→20:27)
--- NOTE | 2019-10-29 07:30 | NUR ---
AM NOTES: BEDSIDE REPORT RECEIVED FROM MELISSA NIGHT NURSE.PATIENT SLEEPING ON THE BED.OBESE GAVIN. O2 3L/NC,GOOD SATURATION. CONNECT TO HEART MONITOR.IV TO SALINE LOCK.CONDITION GUARD.
--- NOTE | 2019-10-29 07:30 | NUR ---
PATIENT HAD AN NO.24 HEPLOCK TRIED TO FLUSH, NOTICE THE NEED WAS NOT ALL THE WAY IN, WAS UNABLE TO FLUSH, START TO LEAKAGE AROUND THE NEEDLE , AN NEW HEPLOCK WAS STARTED, NO.20 G IN THE RIGHT HAND , WAS FLUSH AND PATENT , PATIENT BED SCALE NOT ZERO , PATIENT OUT BED TO SIT ON COMMODA CHAIR THE BED WAS ZERO PATIENT BACK TO BED WAS WEIGHT AT 250.5 STABLE WILL CONTINUED WITH PLAN OF CARE
[2019-10-29] MEDS: FUROSEMIDE 20 MG TABLET PO SCH (08:34)
[2019-10-29] MEDS: CARVEDILOL 3.125 MG TABLET (COREG) PO SCH ×2 (08:34→20:26)
[2019-10-29] MEDS: ASPIRIN 81 MG TAB.CHEW PO SCH (08:34)
[2019-10-29] MEDS: ENOXAPARIN SODIUM 100 MG/ML SYRINGE SUBCUT SCH ×2 (08:38→20:34)
[2019-10-29] MEDS: NITROGLYCERIN 0.4 MG/HR PATCH.TD24 TD SCH (08:39)
--- NOTE | 2019-10-29 10:20 | NUR ---
ID ROUNDS: DR Becky DUNCAN SEEN PATIENT IN THE ROOM.TO ORDER CIPRO PO X 3 DAYS PER ID.
--- NOTE | 2019-10-29 11:35 | NUR ---
BLOOD SUGAR: BLOOD LFBHD=622TR/DL,NO INSULIN NEEDED PER SLIDING SCALE.
--- NOTE | 2019-10-29 11:55 | NUR ---
Nutrition Note RD was consulted by pt's primary RN to meet w/ pt d/t pt's increased appetite and request to speak w/ RD. RD met w/ pt at bedside. Pt reported that he usually has a good appetite, and does not follow any restrictive diet at home. Pt denied any food allergies. Pt reported use of [employer] energy drinks everyday d/t fighting depression and lack of energy. Pt verified anthropometrics. Pt was interested in double portions of foods -- RD suggested double non-starchy vegetables and protein sources -- pt agreeable. Pt was also interested in a snack after dinner. RD suggested HS snack: 1/2 turkey sandwich, diet pudding, and fruit cocktail -- pt agreeable. RD Recommendation: CCHO high carb-75 gm, Glucerna BID w/ HS snacks daily (ONS provides an additional 440 kcal/day, 20 gm protein/day) RD to continue to follow as per nutrition care standards.
--- NOTE | 2019-10-29 12:14 | NUR ---
TRANSFER OUT: WITH ORDERS FROM DR GRIDER ,DOWNGRADE PATIENT TO TELEMETRY.ON STRICT I&O.
[2019-10-29] MEDS ORDERED: FUROSEMIDE 40 MG/4 ML VIAL IVP ONE (12:30)
--- NOTE | 2019-10-29 14:10 | NUR ---
Transfer out to [facility]: Bedside report given to [facility] nurse Lyndsay.Patient wheeled out to [facility] surgical [facility] by Mayra Serna in stable condition. Put patient to bed.Personal belongings checked and completed. No other problem noted.
--- NOTE | 2019-10-29 14:15 | NUR ---
Note Agree with ICU assessment done this morning at 08am.
--- NOTE | 2019-10-29 14:30 | NUR ---
Note Received pt from ICU - oriented to room and nursing procedures and routines. Questions/concerns were answered at this time. Call light within reach. Tele unit applied on admission to floor/room. IV in right hand intact and patent at this time. Pt's brother at bedside since admission to floor.
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
--- NOTE | 2019-10-29 15:55 | NUR ---
Note Pt sleeping - now awake and speaking to public health worker at bedside-questions/concerns are being answered at this time. Pt has O2 on at 3L/nc at this time. Urinal at bedside and pt denies any needs at this time. Call light within reach.
--- NOTE | 2019-10-29 18:45 | NUR ---
Note Pt asleep. Pt just wants to sleep and not be disturbed. No SOB/resp distress or chest pain/discomfort noted at this time. Pt was checked on q1' and PRN all shift for needs and care. Call light within reach. Pt maintained on strict I&O's all shift. Tele unit attached and intact. IV in right hand intact and patent at this time.
--- NOTE | 2019-10-29 19:15 | NUR ---
change of shift.pt.presents quiescent affcet;calm,resting.general status stable.respiratory status stable.o2 therapy via nasal cannulae. pt.capable to repi\osition self.ambualte w/out assisnct.urinal w/n reach of the pt.call light/telephone w/in reach of the pt.
--- NOTE | 2019-10-29 20:00 | NUR ---
pt.assessed.v/s assessed.values w/in normal limits.no c/o pain,nausea.i have apprised the pt.that i may provide snacks/beverages w/in the shift.no requests posited@this hour.general status stable,respiratory status stable;unlabored;02-sat%=94%.pt capable to reposition self.ambulate w/out assistance.call light/telephone w/in reach of the pt.
[2019-10-29] MEDS: FUROSEMIDE 40 MG/4 ML VIAL IVP SCH (20:24)
[2019-10-29] MEDS: TEMAZEPAM 15 MG CAPSULE PO SCH (20:26)
[2019-10-29] MEDS: CIPROFLOXACIN HCL 500 MG TABLET PO SCH (20:27)
--- NOTE | 2019-10-29 20:30 | NUR ---
present.assessing the pt.
[2019-10-29] MEDS: INSULIN REGULAR, HUMAN 100 UNITS/ML, 10 ML VIAL (humuLIN R) SUBCUT PRN (20:36)
--- NOTE | 2019-10-29 21:00 | NUR ---
2100pmedications administered.i have administered lasix;20mg ivp.i have reiterated to the pt.that i am to measure the urine output post the administration of the lasix.urinal placed w/in reach of the pt.
--- NOTE | 2019-10-29 21:30 | NUR ---
i have attended to the urinal;measured.placed w/in reach of the pt.
--- NOTE | 2019-10-29 22:00 | NUR ---
pt.assessed.pt.presents quiescent affect;calm,resting.pt.had requested snacks.i have provided the snacks.general status stable.respiratory status stable;unlabored:o2-sat%=94%.pt.capable to reposition self.estefany light/telephone w/in reach of the pt. Addendum: 10/29/19 at 2357 by Rishi Pickard RN i have attended to the urinal:measured.placed w/in reach of the pt.
[2019-10-30] VITALS: BP_SYST 117
--- NOTE | 2019-10-30 | NUR ---
pt.assessed.v/s assessed;values w/in normal limits.no c/o pain,nausea.pt capable to reposition self.pt.capable to ambulate w/out assistance. no requests posited @this hour.call light/telephone w/in the reach of the pt.
--- NOTE | 2019-10-30 02:00 | NUR ---
pt.assessed.pt.presents quiescent affect;calm,somnolent.i have attended to the urinal;measured.general status stable. respiratory status stable;o2-sat%=94%.pt capable to reposition self.call light/telephone w/in reach of the pt.
--- NOTE | 2019-10-30 04:00 | NUR ---
pt.assessed.pt.presents quiescent affect;calm,somnolent.i have attended to the urinal:measured.w/in reach of the pt. general status stable.respiratory status stable.unlabored.pt.capable to reposition self.call light/telephone w/in reach of the pt.
[2019-10-30] MEDS: NORMAL SALINE 5 ML DISP.SYRIN IVF SCH ×3 (05:50→22:34)
--- NOTE | 2019-10-30 06:15 | NUR ---
pt.assessed.pt.presents quiescent affect;calm,resting.i have assessed the blood glucose;value:101mg/dl.i have apprised the pt.of the value.pt had requests snacks.i have provided the snacks.i have attended to the urinal;measured.placed w/in reach of the pt. general status stable.respiratory status stable;o2-sat%=94%call light/telephone placed w/in reach of the pt. Addendum: 10/30/19 at 0624 by Rishi Pickard RN i have weighed the pt.2/t chf/lasix administration.
[2019-10-30 08:00] VITALS: BP_SYST 124
--- NOTE | 2019-10-30 08:00 | NUR ---
RN INITIAL NOTES RECEIVED PATIENT IN BED ALERT AWAKE , RESP EVEN AND UNLABORED , VERBALIZED HE IS NOT IN ANY PAIN ,NO CHEST PAIN , PATIENT JUST WANTS TO BE FULLY NAKED , PATIENT IS BRP, SAFETY ADVISED PATIENT IS FULLY ALERT AND UNDERSTOOD INSTRUCTION
[2019-10-30] MEDS: CIPROFLOXACIN HCL 500 MG TABLET PO SCH ×2 (09:12→22:33)
[2019-10-30] MEDS: CARVEDILOL 3.125 MG TABLET (COREG) PO SCH ×2 (09:12→20:30)
[2019-10-30] MEDS: FUROSEMIDE 40 MG/4 ML VIAL IVP SCH ×2 (09:12→20:29)
[2019-10-30] MEDS: NITROGLYCERIN 0.4 MG/HR PATCH.TD24 TD SCH (09:13)
[2019-10-30] MEDS: LEVOFLOXACIN 250 MG TABLET PO SCH (09:13)
[2019-10-30] MEDS: ASPIRIN 81 MG TAB.CHEW PO SCH (09:13)
[2019-10-30] MEDS: ENOXAPARIN SODIUM 100 MG/ML SYRINGE SUBCUT SCH ×2 (09:19→20:43)
--- NOTE | 2019-10-30 10:00 | NUR ---
ROUNDS PATIENT IS SLEEPING NOW AFTER MEES AND BREAKFAST NO CHEST PAIN
--- NOTE | 2019-10-30 12:30 | NUR ---
ROUNDS EATING HIS LUNCH NO PAIN
[2019-10-30 16:01] VITALS: BP_SYST 128
[2019-10-30 16:02] VITALS: BP_SYST 134
--- NOTE | 2019-10-30 16:11 | NUR ---
ROUNDS PATIENT WATCHING TV NO SIGN OF FACIAL GRIMACE PATIENT SAID HE HAS NO PAIN
--- NOTE | 2019-10-30 19:20 | NUR ---
Opening note Received patient resting in bed w/ eyes closed; he was arousable to name. AOx4, no s/sx of distress, nonlabored breathing on 2L NC. IV is SL to Rt hand. Presently denies pain. Side rails up 2x, bed locked in lowest position, refused bed alarm - stating that he is steady and has been getting up, call light w/in reach. Updated board and reviewed plan of care.
[2019-10-30 20:00] VITALS: BP_SYST 125
[2019-10-30] MEDS: TEMAZEPAM 15 MG CAPSULE PO SCH (20:30)
[2019-10-30] MEDS: INSULIN REGULAR, HUMAN 100 UNITS/ML, 10 ML VIAL (humuLIN R) SUBCUT PRN (20:41)
--- NOTE | 2019-10-30 20:54 | NUR ---
Medications Due medications given, educated on side effects and he verbalized understanding. Fingerstick blood glucose done w/ result of 157 mg/dL and administered insulin per sliding scale order. Patient requested ice water and it was provided. No further needs.
--- NOTE | 2019-10-30 22:37 | NUR ---
Antibiotic Due antibiotic, Cipro PO, given as ordered. Patient requested fruit and crackers; he was given applesauce (no sugar) and skuhjinder crackers. Patient has no further requests.
--- NOTE | 2019-10-31 00:10 | NUR ---
Rounds Patient is resting w/ eyes closed. Nonlabored breathing. He is sleeping in side posture, not wearing a gown and covered from waist down with a sheet; does not want a gown. Call light w/in reach.
[2019-10-31 00:37] VITALS: BP_SYST 129
--- NOTE | 2019-10-31 02:25 | NUR ---
Rounds Patient is resting w/ eyes closed. Symmetrical rise and fall of chest, nonlabored breathing noted. Call light w/in reach.
--- NOTE | 2019-10-31 04:30 | NUR ---
Awake - OOB Patient ambulated to restroom and returned to bed. Telemonitor leads are off, connections were assessed and battery replaced. Patient sitting upright in bed watching t.v., no s/sx of distress. He asked for a cracker and it was provided. No further needs.
[2019-10-31] MEDS: NORMAL SALINE 5 ML DISP.SYRIN IVF SCH (06:18)
--- NOTE | 2019-10-31 06:24 | NUR ---
closing note - Fingerstick BGT Fingerstick blood glucose done w/ result of 123 mg/dL and no coverage due per sliding scale order. Patient resting in comfortable position, nonlabored breathing. Needs met throughout shift, will endorse care to incoming nurse.
--- NOTE | 2019-10-31 07:27 | NUR ---
DC Planning: Looking for accepting SNF for possible discharge today. ([facility] will only be considered if no beds at the [facility] preferred core SNFs contracts) Anni Lopez LVN [facility] Shovel Engineer [phone] Addendum: 10/31/19 at 0821 by Anni Lopez LVN --- Entered in ERROR ----
--- NOTE | 2019-10-31 08:00 | NUR ---
RN [id number] NOTES RECEIVED PATIENT IN BED ALERT AWAKE AND VERBAL NO PAIN , SAFETY ADVISED
--- NOTE | 2019-10-31 08:00 | NUR ---
BISI INITIIAL NOTES RECEIVED PATIENT IN BED ASLEEP NO DISTRESS, PATIENT RESP EVEN AND UNLABORED, PATIENT WAS CALMED LAST NIGHT BUT CONFUSED STILL. PATIENT WILL CONT PLAN OF CARE TODAY Addendum: 10/31/19 at 1255 by Carly Anderson RN WRONG PATIENT
[2019-10-31 08:15] VITALS: BP_SYST 133
[2019-10-31] MEDS: FUROSEMIDE 40 MG/4 ML VIAL IVP SCH (09:20)
[2019-10-31] MEDS: CIPROFLOXACIN HCL 500 MG TABLET PO SCH (09:21)
[2019-10-31] MEDS: LEVOFLOXACIN 250 MG TABLET PO SCH (09:21)
[2019-10-31] MEDS: CARVEDILOL 3.125 MG TABLET (COREG) PO SCH (09:21)
[2019-10-31] MEDS: ASPIRIN 81 MG TAB.CHEW PO SCH (09:21)
[2019-10-31] MEDS: NITROGLYCERIN 0.4 MG/HR PATCH.TD24 TD SCH (09:22)
[2019-10-31] MEDS: ENOXAPARIN SODIUM 100 MG/ML SYRINGE SUBCUT SCH (09:30)
[2019-10-31 09:43] LABS: BASOPHILS # (AUTO) 0.1 K/uL (0.0-0.2); BASOPHILS % (AUTO) 1.4 % (0.0-2.0); EOSINOPHILS # (AUTO) 0.2 K/uL (0.0-0.4); EOSINOPHILS % (AUTO) 2.3 % (0.0-4.0); HEMATOCRIT 52.3 % (36-54); HEMOGLOBIN 17.8 g/dL (14.0-18.0); LYMPHOCYTES # (AUTO) 1.7 K/uL (1.0-5.5); LYMPHOCYTES % (AUTO) 22.6 % (20.5-51.5); MEAN CORPUSCULAR HEMOGLOBIN 30 pg (27-31); MEAN CORPUSCULAR HGB CONC 34 % (32-36); MEAN CORPUSCULAR VOLUME 87 fL (79.0-98.0); MONOCYTES # (AUTO) 0.7 K/uL (0.0-1.0); MONOCYTES % (AUTO) 9.7 % (1.7-9.3); NEUTROPHILS # (AUTO) 4.8 K/uL (1.8-7.7); PLATELET COUNT (AUTO) 295 K/uL (130-430); RED BLOOD CELL COUNT(AUTO) 5.99 MIL/uL (4.2-6.2); RED CELL DISTRIBUTION WIDTH 16.3 % (9.0-15.0); WHITE BLOOD COUNT (AUTO) 7.4 K/uL (4.8-10.8)
[2019-10-31 09:49] LABS: CALCIUM 9.3 mg/dL (8.4-11.0); CREATININE 0.73 mg/dL (0.55-1.30); POTASSIUM 4.4 mmol/L (3.5-5.1)
--- NOTE | 2019-10-31 10:00 | NUR ---
DR ROWLAND PATIENT SEEN BYDR ROWLAND WITH DC ORDER TO CLEAR WITH CARDIOLOGY , INFORMED PATIENT
[2019-10-31] MEDS ORDERED: ASA81 PO (10:43)
[2019-10-31] MEDS ORDERED: NITR1PAT TD (10:43)
[2019-10-31] MEDS ORDERED: TEMA15CA5 PO (10:43)
[2019-10-31] MEDS ORDERED: COR3.125 PO (10:43)
[2019-10-31] MEDS ORDERED: FURO-149 PO (10:44)
[2019-10-31] MEDS ORDERED: GLUCOSE 15 GM GEL (in 37.5 GM TUBE) PO PRN (11:15)
[2019-10-31] MEDS ORDERED: DEXTROSE 50%-WATER 50 ML DISP.SYRIN IVP PRN (11:15)
[2019-10-31] MEDS ORDERED: D5W 1,000 ML IV PRN (11:15)
--- NOTE | 2019-10-31 12:00 | NUR ---
CARDIOLOGY CLEARANCE CHARGE NURSE CALLED DR MALDONADO DEPUTY FELONY CLERK E[employer]IC ATT[employer]ER [id number] DR YUAN PATIENT IS BEEN CLEARDE FOR DC TODAY , WILL NEED TO FOLLOW UP WITH CARDIOLOGY WITHIN A WEEK AND PCP , PATIENT IS AWARE , HE SAID HE WILL CALL SOMEONE TO PICK HIM UP THIS PM
[2019-10-31 12:16] VITALS: BP_SYST 126
[2019-10-31 12:55] VITALS: BP_SYST 114
--- NOTE | 2019-10-31 14:30 | NUR ---
D/C Patient Patient given medication reconciliation form and D/C instructions. Exit Care provided. Patient verbalized understanding. MD discussed with patient the results and treatment provided. Ambulatory with steady gait for discharge to home. Patient in stable condition, ID band removed. IV catheter removed, intact and dressing applied, no active bleeding. Rx of home meds and ATB given patient educated meds and will get his meds in am , patient will call his PCP in am for follow up within 1 week and for follow up with bus operator. Patient educated on pain management. All belongings sent with patient.
== END 2019-10-31 14:20 | disposition home or self-care (01) | DRG 280 ==
LOC: SED 12:52 → STU 16:29 → SIC 10-28 11:31 → STU 10-29 14:10
PROVIDERS: ADMIT Preventive Medicine Preventive Medicine/Occupational Environmental Medicine; ATTEND Internal Medicine Hospice and Palliative Medicine
DX: I21.4 Non-ST elevation (NSTEMI) myocardial infarction (principal); I50.21 Acute systolic (congestive) heart failure; I42.0 Dilated cardiomyopathy; N39.0 Urinary tract infection, site not specified; E11.9 Type 2 diabetes mellitus without complications; E78.5 Hyperlipidemia, unspecified; E66.9 Obesity, unspecified; E78.00 Pure hypercholesterolemia, unspecified; F17.210 Nicotine dependence, cigarettes, uncomplicated; F31.9 Bipolar disorder, unspecified; I11.0 Hypertensive heart disease with heart failure; K40.90 Unilateral inguinal hernia, without obstruction or gangrene, not specified as recurrent; F15.10 Other stimulant abuse, uncomplicated; Z79.01 Long term (current) use of anticoagulants; Z91.14 Patient's other noncompliance with medication regimen; Z79.899 Other long term (current) drug therapy; Z68.35 Body mass index [BMI] 35.0-35.9, adult
CPT/HCPCS: 36415; 71045; 80048; 80053; 80061; 80307; 81000-TC; 82150-TC; 82550-TC; 82553-TC; 82962; 83036; 83605; 83690-TC; 83735-TC; 83880; 84100-TC; 84484; 85025; 85610-TC; 85730-TC; 87040-TC; 87081; 93005; 93306; 94640; 96361; 96374; 99285; G0378; J1650; J1815; J1940; J2270; J2930; J7613